=== PATIENT | male | born 1945 | race Caucasian/White ===

== ENCOUNTER 2018-03-30 01:03 | Inpatient (IN) | payer MEDICARE, OTHER ==
[2018-03-30] MEDS ORDERED: MORPHINE SULFATE 2 MG/ML SYRINGE IVP STA (02:21)
[2018-03-30] MEDS ORDERED: ONDANSETRON 4 MG/2 ML VIAL IVP STA (02:22)
--- NOTE | 2018-03-30 03:16 | ED ---
General Adult HPI - General Chief complaint: Urogenital Stated complaint: Flank Pain Time Seen by Provider: 03/30/18 01:11 Source: patient, EMS Mode of arrival: EMS Limitations: no limitations - History of Present Illness Initial comments: 72 years old gentleman was sent for [facility] with the right-sided stone in the ureterovesical junction with hydronephrosis was noticed and perinephric Fat stranding was noticed as well white count was 19 he got Rocephin deloculated and Zofran on arrival he still complaining about the pain for which pain it's a lot better than before I he does have a history of hypertension gastroesophageal reflux disease. He denies any headaches no chest pain or shortness of breath he does have a flank pain - Related Data Home Medications Medication Instructions Recorded Confirmed Diclofenac Sodium/Misoprostol 1 each PO DAILY 03/30/18 03/30/18 [Arthrotec 75 mg-200 Mcg Tab] Hydrocodone/Acetaminophen 1 tab PO Q4HR PRN 03/30/18 03/30/18 [Hydrocodon-Acetaminoph 7.5-325] Ibuprofen [Motrin] 800 mg PO DAILY 03/30/18 03/30/18 Metoprolol Succinate (ER) [Toprol 50 mg PO DAILY 03/30/18 03/30/18 XL] Omeprazole 20 mg PO DAILY 03/30/18 03/30/18 amLODIPine [Norvasc] 10 mg PO DAILY 03/30/18 03/30/18 Allergies Allergy/AdvReac Type Severity Reaction Status Date / Time gabapentin [From Neurontin] AdvReac Rash/Hives Verified 03/30/18 01:16 Review of Systems ROS Statement: Those systems with pertinent positive or pertinent negative responses have been documented in the HPI. ROS Other: All systems not noted in ROS Statement are negative. Past Medical History Past Medical History: Atrial Fibrillation, Hypertension Additional Past Medical History / Comment(s): "leaky valve." History of Any Multi-Drug Resistant Organisms: None Reported Past Surgical History: Orthopedic Surgery Additional Past Surgical History / Comment(s): left hip replacement, R femur repair Past Psychological History: No Psychological Hx Reported Smoking Status: Former smoker Past Alcohol Use History: Occasional Past Drug Use History: None Reported General Exam - General Exam Comments Initial Comments: General: The patient is awake and alert, in no distress, and does not appear acutely ill. Skin: Skin is warm and dry and no rashes or lesions are noted. Eye: Pupils are equal, round and reactive to light, extra-ocular movements are intact; there is normal conjunctiva bilaterally. Ears, nose, mouth and throat: There are moist mucous membranes and no oral lesions. Neck: The neck is supple, there is no tenderness or JVD. Cardiovascular: There is a regular rate and rhythm I suspect atrial fibrillation Respiratory: To auscultation bilateral, decreased air exchange bilateral Gastrointestinal: Soft, non-distended, non-tender abdomen without masses or organomegaly noted. There is no rebound or guarding present. Bowel sounds are unremarkable. Back: There is no tenderness to palpation in the midline. There is no obvious deformity. Musculoskeletal: Normal ROM, no tenderness, There is no pedal edema. There is no calf tenderness or swelling. No cords were appreciated. Neurological: CN II-XII intact, Cranial nerves III through XII are intact. There are no obvious motor or sensory deficits. Coordination appears grossly intact. Speech is normal. Psychiatric: Cooperative, appropriate mood & affect, normal judgment. Limitations: no limitations Course Vital Signs 03/30/18 03/30/18 03/30/18 01:05 02:02 02:50 Temperature 98.9 F Pulse Rate 66 59 L 56 L Respiratory 18 18 18 Rate Blood Pressure 169/93 129/78 139/60 O2 Sat by Pulse 95 96 95 Oximetry He be admitted to [facility] formerly [facility] urology and Dr. Montes be consulted Disposition Clinical Impression: Hydronephrosis, Ureteric calculus Disposition: ADMITTED IP TO THIS HOSP Condition: Good Referrals: Bhavin Kohli MD [Primary Care Provider] - 1-2 days
[2018-03-30] MEDS ORDERED: NALOXONE 0.4 MG/ML 1 ML VIAL IV PRN (04:02)
[2018-03-30] MEDS ORDERED: ONDANSETRON 4 MG/2 ML VIAL IVP PRN (04:02)
[2018-03-30] MEDS ORDERED: MORPHINE SULFATE 4 MG/ML SYRINGE IV PRN (04:02)
[2018-03-30] MEDS ORDERED: HYDROcodone/APAP 7.5-325MG 1 EACH TAB PO PRN (04:09)
--- NOTE | 2018-03-30 04:38 | P.HPIM ---
History of Present Illness H&P Date: 03/30/18 Chief Complaint: Kidney stone This is a 72-year-old male that comes in as a transfer from an outside hospital. Patient presented there with flank pain workup there showed evidence of a 4 mm stone. Now patient says that pain has been ongoing for the past 24 hours. And has been constant. Denies any gross hematuria denies any fevers denies any chills. He said he had 2 episodes of vomiting before coming in. Patient says he had kidney stone 15 years ago Review of Systems No fever no chills no hematuria no chest pain or palpitations Past Medical History Past Medical History: Atrial Fibrillation, Hypertension Additional Past Medical History / Comment(s): "leaky valve." History of Any Multi-Drug Resistant Organisms: None Reported Past Surgical History: Orthopedic Surgery Additional Past Surgical History / Comment(s): left hip replacement, R femur repair Past Psychological History: No Psychological Hx Reported Smoking Status: Former smoker Past Alcohol Use History: Occasional Past Drug Use History: None Reported Medications and Allergies Home Medications Medication Instructions Recorded Confirmed Type Diclofenac Sodium/Misoprostol 1 each PO DAILY 03/30/18 03/30/18 History [Arthrotec 75 mg-200 Mcg Tab] Hydrocodone/Acetaminophen 1 tab PO Q4HR PRN 03/30/18 03/30/18 History [Hydrocodon-Acetaminoph 7.5-325] Ibuprofen [Motrin] 800 mg PO DAILY 03/30/18 03/30/18 History Metoprolol Succinate (ER) [Toprol 50 mg PO DAILY 03/30/18 03/30/18 History XL] Omeprazole 20 mg PO DAILY 03/30/18 03/30/18 History amLODIPine [Norvasc] 10 mg PO DAILY 03/30/18 03/30/18 History Allergies Allergy/AdvReac Type Severity Reaction Status Date / Time gabapentin [From Neurontin] AdvReac Rash/Hives Verified 03/30/18 01:16 Physical Exam Vitals: Vital Signs Temp Pulse Resp BP Pulse Ox 03/30/18 04:27 98.4 F 58 L 18 148/66 95 03/30/18 02:50 56 L 18 139/60 95 03/30/18 02:02 59 L 18 129/78 96 03/30/18 01:05 98.9 F 66 18 169/93 95 Intake and Output 03/29/18 03/29/18 03/30/18 14:59 22:59 06:59 Output Total 200 Balance -200 Output: Urine 200 Other: Weight 104.78 kg gen: alert no acute distress neck: no bruits, supple oral: no thrush, MOM carly, eomi lungs:CTA X2, NO WHEEZES HEART S1S2 ABD: SOFT AND DEP NT EXT:NO EDEMA NEURO: NO MOTOR DEF NO LYMPH NODES PALPABLE Results Results: records reviewed Assessment and Plan (1) Ureteric calculus Narrative/Plan: dilaudid prn for pain pt says morphine not working consult urology Current Visit: Yes Status: Acute Code(s): N20.1 - CALCULUS OF URETER SNOMED Code(s): 67003187 (2) Hydronephrosis Narrative/Plan: secondary to obstruction no signs of renal failure Current Visit: Yes Status: Acute Code(s): N13.30 - UNSPECIFIED HYDRONEPHROSIS SNOMED Code(s): 65587309 (3) Hypertension Narrative/Plan: controlled continue amlodipine Current Visit: Yes Status: Acute Code(s): I10 - ESSENTIAL (PRIMARY) HYPERTENSION SNOMED Code(s): 77362730 (4) Atrial fibrillation Current Visit: Yes Status: Acute Code(s): I48.91 - UNSPECIFIED ATRIAL FIBRILLATION SNOMED Code(s): 92200452 (5) Hyperlipidemia Current Visit: Yes Status: Acute Code(s): E78.5 - HYPERLIPIDEMIA, UNSPECIFIED SNOMED Code(s): 39795420
[2018-03-30] MEDS ORDERED: HYDROmorphone 0.5 MG/0.5 ML SYRINGE IVP PRN (04:40)
[2018-03-30 06:27] VITALS: RESP 16
[2018-03-30] MEDS ORDERED: cefTRIAXone IN SWFI 1,000 MG/10 ML SYRINGE IVP SCH (09:00)
[2018-03-30] MEDS ORDERED: PANTOPRAZOLE 40 MG TABLET PO SCH (09:00)
[2018-03-30] MEDS ORDERED: METOPROLOL SUCCINATE (ER) 50 MG TAB.ER.24H PO SCH (09:00)
[2018-03-30] MEDS ORDERED: IBUPROFEN 800 MG TAB PO SCH (09:00)
[2018-03-30] MEDS ORDERED: amLODIPine 10 MG TAB PO SCH (09:00)
[2018-03-30 15:35] VITALS: BP 111/52; PULSE 61; TEMP 98.6
--- NOTE | 2018-03-30 17:03 | P.GSCN ---
History of Present Illness Consult date: 03/30/18 History of present illness: The patient is a pleasant 72-year-old gentleman who was in his usual state of health until yesterday morning when he developed severe right ureteral colic. The patient went to [place] emergency room where he was diagnosed to have a 4 mm distal ureteral stone on the right side moderate hydronephrosis. He had an elevated white blood cell count to 19,000 although his urine was relatively clear other than hematuria. He's placed and IV antibiotics and transferred to [facility] for further care and urologic evaluation. The patient had a stone 15 years ago. He passes spontaneously. He has not had any fever since she's been on the hospital. He was told on a KUB several years ago that he had a right renal stone. The computed tomography scan did not identify any of the other stones. The patient has not had any pain since yesterday. He voided into the toilet not into strain and wonders whether he passed at that point in time. He has no voiding symptoms. He is on not on any medications. He is not had any back pain or hematuria prior to this. His multiple orthopedic problems. Review of Systems - Constitutional Reports as per HPI - Gastrointestinal Reports as per HPI - Genitourinary Reports as per HPI - Musculoskeletal Reports as per HPI Past Medical History Past Medical History: Atrial Fibrillation, Hypertension Additional Past Medical History / Comment(s): "leaky valve." History of Any Multi-Drug Resistant Organisms: None Reported Past Surgical History: Orthopedic Surgery Additional Past Surgical History / Comment(s): left hip replacement, R femur repair with ruben placement Past Psychological History: No Psychological Hx Reported Smoking Status: Former smoker Past Alcohol Use History: Occasional Additional Past Alcohol Use History / Comment(s): 1-2 beers a week Past Drug Use History: None Reported - Past Family History Father Additional Family Medical History / Comment(s): colon CA heart murmur Mother Family Medical History: Diabetes Mellitus Medications and Allergies Home Medications Medication Instructions Recorded Confirmed Type Diclofenac Sodium/Misoprostol 1 tab PO DAILY 03/30/18 03/30/18 History [Arthrotec 75 mg-200 Mcg Tab] Hydrocodone/Acetaminophen 1 tab PO Q4HR PRN 03/30/18 03/30/18 History [Hydrocodon-Acetaminoph 7.5-325] Ibuprofen [Motrin] 800 mg PO DAILY 03/30/18 03/30/18 History Metoprolol Succinate (ER) [Toprol 50 mg PO DAILY 03/30/18 03/30/18 History XL] Omeprazole 20 mg PO DAILY 03/30/18 03/30/18 History amLODIPine [Norvasc] 10 mg PO DAILY 03/30/18 03/30/18 History Allergies Allergy/AdvReac Type Severity Reaction Status Date / Time gabapentin [From Neurontin] Allergy Rash/Hives Verified 03/30/18 08:29 Surgical - Exam Vital Signs Temp Pulse Resp BP Pulse Ox 98.9 F 66 18 169/93 95 03/30/18 01:05 03/30/18 01:05 03/30/18 01:05 03/30/18 01:05 03/30/18 01:05 - General well developed, well nourished, no distress - Eyes PERRL - ENT no hearing loss - Respiratory normal expansion, normal respiratory effort - Cardiovascular Rhythm: irregularly irregular - Abdomen Abdomen: soft, non tender - Genitourinary normal penis with no external lesions - Integumentary no rash, no growths - Neurologic normal coordination, normal sensation - Musculoskeletal normal gait, normal posture - Psychiatric oriented to time, oriented to person, oriented to place, speech is normal, memory intact Results - Imaging CT scan - abdomen: report reviewed CT scan - pelvis: report reviewed Assessment and Plan Assessment: Impression: Right ureteral calculus probably passed. History of kidney stones. History medical issues. History multiple orthopedic problems. Recommendation:. Because of the concern of a urinary tract infection although I 'm not certain that the case I will get a KUB to make certain that the stone is passed. If it hasn't nothing further urologic needs to be done. If I see a calcification suggestive of the stone that I would follow patient in the office. From urologic standpoint he can be discharged home today.
--- NOTE | 2018-03-30 17:36 | XR ---
EXAMINATION TYPE: XR KUB DATE OF EXAM: 03/30/2018 COMPARISON: NONE HISTORY: Abdominal pain TECHNIQUE: Single view FINDINGS: There is right hip nailing. There is left hip prosthesis. Bowel gas pattern is normal. Ther e is no sign of intestinal obstruction or pneumoperitoneum. Fecal pattern is normal. IMPRESSION: Nonacute abdomen.
--- NOTE | 2018-03-30 18:00 | P.DS ---
Providers Date of admission: 03/30/18 04:02 Expected date of discharge: 03/30/18 Attending physician: Jeffery Castañeda MD Consults: 03/30/18 04:02 Consult Physician Stat Consulting Provider: Leon Grijalva Consult Reason/Comments: Ureteric calculus and leukocytosis Do you want consulting provider notified?: Yes Primary care physician: Bhavin Kohli - Discharge Diagnosis(es) (1) Ureteric calculus Current Visit: Yes Status: Acute (2) Hydronephrosis with renal calculous obstruction Current Visit: Yes Status: Acute (3) Leukocytosis Current Visit: Yes Status: Acute (4) Atrial fibrillation Current Visit: Yes Status: Acute (5) Hypertension Current Visit: Yes Status: Acute Hospital Course: The patient is a 72-year-old male that was transferred from [facility] with a right sided stone in the utero-vesicalcycle junction With hydronephrosis with perinephric fat stranding and a white count of 19, apparently was started on Rocephin and transferred here. Apparently the patient had a 4 mm stone, and felt like he passed that he was seen by urology Dr. Grijalva recommended that the patient be discharged. The patient was afebrile throughout the hospitalization and was without CVA tenderness or nausea. and review of the urinalysis was not suggestive of a UTI, with only hematuria noted. He was subsequently discharged home without antibiotics as the patient was afebrile without CVA tenderness and urinalysis does not show any pyuria or white count. Discharged in stable condition told to follow-up with Dr. Grijalva. This discharge process took less than 30 minutes. Patient Condition at Discharge: Good Plan - Discharge Summary Discharge Rx Participant: No New Discharge Prescriptions: Continue amLODIPine [Norvasc] 10 mg PO DAILY Hydrocodone/Acetaminophen [Hydrocodon-Acetaminoph 7.5-325] 1 tab PO Q4HR PRN PRN Reason: Pain Ibuprofen [Motrin] 800 mg PO DAILY Metoprolol Succinate (ER) [Toprol XL] 50 mg PO DAILY Diclofenac Sodium/Misoprostol [Arthrotec 75 mg-200 Mcg Tab] 1 tab PO DAILY Omeprazole 20 mg PO DAILY Discharge Medication List Diclofenac Sodium/Misoprostol [Arthrotec 75 mg-200 Mcg Tab] 1 tab PO DAILY 03/30 [History] Hydrocodone/Acetaminophen [Hydrocodon-Acetaminoph 7.5-325] 1 tab PO Q4HR PRN 11/16 [History] Ibuprofen [Motrin] 800 mg PO DAILY 03/30/18 [History] Metoprolol Succinate (ER) [Toprol XL] 50 mg PO DAILY 03/30/18 [History] Omeprazole 20 mg PO DAILY 03/30/18 [History] amLODIPine [Norvasc] 10 mg PO DAILY 03/30/18 [History] Follow up Appointment(s)/Referral(s): Bhavin Kohli MD [Primary Care Provider] - 03/31/18 3:00 pm Patient Instructions/Handouts: Kidney Stones (DC) Activity/Diet/Wound Care/Special Instructions: activity as tolerated resume regular diet
== END 2018-03-30 19:05 | disposition home or self-care (01) | DRG 694 ==
LOC: EC 01:03 → 4MS4W 04:02
PROVIDERS: ADMIT Internal Medicine; ATTEND Internal Medicine
DX: N13.2 Hydronephrosis with renal and ureteral calculous obstruction (principal); Z87.442 Personal history of urinary calculi; D72.829 Elevated white blood cell count, unspecified; E78.5 Hyperlipidemia, unspecified; I10 Essential (primary) hypertension; I48.91 Unspecified atrial fibrillation; K21.9 Gastro-esophageal reflux disease without esophagitis; Z79.899 Other long term (current) drug therapy; Z80.0 Family history of malignant neoplasm of digestive organs; Z83.3 Family history of diabetes mellitus; Z87.891 Personal history of nicotine dependence; Z96.642 Presence of left artificial hip joint; R31.9 Hematuria, unspecified
CPT/HCPCS: 74018; 96374; 96375; 99284